=== PATIENT | female | born 1985 | race Caucasian/White ===

== ENCOUNTER 2017-11-08 07:32 | Emergency (ER) | payer OTHER ==
[2017-11-08] MEDS ORDERED: FLUORESCEIN OPHTH 1 MG STRIP As Ordered ×4 (07:57)
== END 2017-11-08 08:45 | disposition home or self-care (01) ==
LOC: M ED 07:32
DX: H10.9 Unspecified conjunctivitis (principal); Z88.8 Allergy status to other drugs, medicaments and biological substances; Z88.5 Allergy status to narcotic agent
CPT/HCPCS: 87070; 87077